=== PATIENT | female | born 1990 | race Hispanic/Latino ===

== ENCOUNTER 2017-05-03 14:27 | Emergency (ER) | payer MEDICAID ==
[2017-05-03] MEDS ORDERED: IBUPROFEN 600 MG TABLET ONE (14:43)
[2017-05-03] MEDS ORDERED: SULFAMETHOX-TMP DS 800/160 TAB ONE (14:44)
== END 2017-05-03 14:49 | disposition home or self-care (01) ==
LOC: EDH 14:27
DX: L03.115 Cellulitis of right lower limb (principal)

== ENCOUNTER 2017-05-08 22:03 | Emergency (ER) | payer MEDICAID | END 2017-05-08 22:39 | disposition home or self-care (01) | LOC: EDH 22:03 | DX: F13.10 Sedative, hypnotic or anxiolytic abuse, uncomplicated (principal); R41.82 Altered mental status, unspecified | CPT/HCPCS: 99281 ==

== ENCOUNTER 2017-10-07 23:38 | Emergency (ER) | payer MEDICAID ==
[2017-10-08] MEDS ORDERED: ACETAMINOPHEN 325 MG TAB ONE (00:04)
== END 2017-10-08 00:24 | disposition home or self-care (01) ==
LOC: EDH 23:38
DX: S00.81XA Abrasion of other part of head, initial encounter (principal); L08.9 Local infection of the skin and subcutaneous tissue, unspecified; Z72.0 Tobacco use; X58.XXXA Exposure to other specified factors, initial encounter; Y93.89 Activity, other specified; Y92.89 Other specified places as the place of occurrence of the external cause; Y99.8 Other external cause status

== ENCOUNTER 2018-03-17 19:03 | Emergency (ER) | payer MEDICAID ==
[2018-03-17] MEDS ORDERED: ONDANSETRON HCL 4 MG/2 ML VIAL ONE (19:27)
== END 2018-03-17 19:37 | disposition home or self-care (01) ==
LOC: EDH 19:03
DX: R11.2 Nausea with vomiting, unspecified (principal); Z72.0 Tobacco use
CPT/HCPCS: 96374; 99283; J2405

== ENCOUNTER 2018-10-08 18:49 | Emergency (ER) | payer MEDICAID ==
[2018-10-08 19:20] LABS: APPEARANCE,URINE CLOUDY (CLEAR); BILIRUBIN,URINE NEGATIVE (NEGATIVE); COLOR,URINE YELLOW (YELLOW); GLUCOSE, URINE (UA) NEGATIVE (NEGATIVE); KETONES,URINE NEGATIVE (NEGATIVE); LEUKOCYTE ESTERASE ,URINE SMALL (NEGATIVE); NITRATE,URINE POSITIVE (NEGATIVE); OCCULT BLOOD,URINE LARGE (NEGATIVE); PH,URINE 5.5 (5.0-8.0); PROTEIN,URINE TRACE mg/dL (NEGATIVE); UROBILINOGEN,URINE 0.2 mg/dL (0.2-1.0)
[2018-10-08 19:35] LABS: AMPHET/METH SCREEN,URINE NEGATIVE (NEGATIVE); BARBITURATE SCREEN, URINE NEGATIVE (NEGATIVE); BENZODIAZEPINES SCREEN,URINE NEGATIVE (NEGATIVE); CANNABINOID SCREEN,URINE NEGATIVE (NEGATIVE); COCAINE SCREEN,URINE POSITIVE (NEGATIVE); OPIATE SCREEN,URINE NEGATIVE (NEGATIVE); PHENCYCLIDINE SCREEN,URINE NEGATIVE (NEGATIVE)
[2018-10-08] MEDS ORDERED: ONDANSETRON ODT 4 MG TAB ONE (19:43)
[2018-10-08 19:49] LABS: BASOPHILS % (AUTO) 0.3 % (0.0-5.0); EOSINOPHILS % (AUTO) 0.5 % (0.0-8.0); HEMATOCRIT 39.7 % (36-48); LYMPHOCYTES % (AUTO) 18.6 % (21.0-51.0); MEAN CORPUSCULAR HEMOGLOBIN 31.6 pg (27.0-33.0); MEAN CORPUSCULAR HGB CONC 33.9 g/dL (32.0-36.0); MEAN CORPUSCULAR VOLUME 93.2 fL (79-99); MONOCYTES % (AUTO) 4.9 % (3.0-13.0); NEUTROPHILS % (AUTO) 75.7 % (40.0-77.0); PLATELET COUNT (AUTO) 309 K/uL (130-400); RED BLOOD CELL COUNT(AUTO) 4.26 MIL/uL (4.00-5.50); RED CELL DISTRIBUTION WIDTH 13.2 % (11.0-15.5); WHITE BLOOD COUNT (AUTO) 11.2 K/uL (4.8-10.8)
[2018-10-08 19:53] LABS: CARBON DIOXIDE 23 mmol/L (21-32); CHLORIDE 106 mmol/L (101-111); CREATININE 0.7 mg/dL (0.5-1.5); GLOMERULAR FILTR. RATE CALC 108 mL/min (>60); GLUCOSE,RANDOM 105 mg/dL (70-105); SODIUM SERUM 140 mmol/L (136-145); UREA NITROGEN, BLOOD 8 mg/dL (7-18)
[2018-10-08 19:56] LABS: BACTERIA,URINE Moderate /HPF (None Seen); SQUAMOUS EPITHELIAL CELL,UR Moderate /HPF (0-2); YEAST,URINE BUDDING Rare /HPF (None Seen)
[2018-10-08 19:57] LABS: MUCUS,URINE Rare LPF (None Seen)
[2018-10-08 19:59] LABS: ACETAMINOPHEN < 1 mcg/mL (10-30); ALANINE AMINOTRANSFERASE 20 U/L (12-78); ALBUMIN 3.3 g/dL (3.5-5.0); ALCOHOL, BLOOD < 3 mg/dL (0-10); ASPARTATE AMINOTRANSFERASE 19 U/L (10-37); BILIRUBIN,TOTAL 0.4 mg/dL (0.2-1.0); SALICYLATE < 2.8 mg/dL (2.8-20.0); TOTAL PROTEIN, SERUM 6.9 g/dL (6.0-8.3)
== END 2018-10-08 20:42 | disposition home or self-care (01) ==
LOC: EDH 18:49
DX: F14.10 Cocaine abuse, uncomplicated (principal); R07.9 Chest pain, unspecified; L03.116 Cellulitis of left lower limb; Z72.0 Tobacco use
CPT/HCPCS: 36415; 80053; 80305; 81001; 81025; 84484; 85025; 93005; 99285; G0480 ×2; G0481

== ENCOUNTER 2019-01-22 08:56 | Emergency (ER) | payer MEDICARE ==
[2019-01-22] MEDS ORDERED: ALBUTEROL SULFATE 0.083% 2.5 MG/3 ML INH IH ONE (09:34)
== END 2019-01-22 10:49 | disposition home or self-care (01) ==
LOC: EDH 08:56
DX: J20.9 Acute bronchitis, unspecified (principal); Z98.51 Tubal ligation status; Z72.0 Tobacco use
CPT/HCPCS: 71046; 87804; 94640

== ENCOUNTER 2019-10-17 05:54 | Emergency (ER) | payer MEDICARE ==
[2019-10-17] MEDS ORDERED: IBUPROFEN 600 MG TABLET ONE (06:33)
[2019-10-17] MEDS ORDERED: ACETAMINOPHEN EXTRA STRENGTH 500 MG TABLET ONE (06:33)
[2019-10-17] MEDS ORDERED: LIDOCAINE HCL 2% VISCOUS 15 ML UDCUP ONE (06:34)
[2019-10-17] MEDS ORDERED: MAG HYDROX/AL HYDROX/SIMETH ES 30 ML SUSP UDCUP ONE (06:34)
== END 2019-10-17 06:45 | disposition home or self-care (01) ==
LOC: EDH 05:54
DX: R06.02 Shortness of breath (principal); R05 Cough; R11.2 Nausea with vomiting, unspecified; R50.9 Fever, unspecified

== ENCOUNTER 2019-11-27 00:12 | Emergency (ER) | payer MEDICARE ==
[2019-11-27] MEDS ORDERED: SODIUM CHLORIDE 0.9% 1000ML 1,000 ML IV ONE (00:13)
[2019-11-27] MEDS ORDERED: LORAZEPAM 2 MG/ML 1 ML VIAL ONE (00:20)
[2019-11-27 00:50] LABS: BASOPHILS % (AUTO) 0.2 % (0.0-5.0); EOSINOPHILS % (AUTO) 0.3 % (0.0-8.0); HEMATOCRIT 38.6 % (36-48); LYMPHOCYTES % (AUTO) 27.7 % (21.0-51.0); MEAN CORPUSCULAR HEMOGLOBIN 30.8 pg (27.0-33.0); MEAN CORPUSCULAR HGB CONC 34.5 g/dL (32.0-36.0); MEAN CORPUSCULAR VOLUME 89.4 fL (79-99); MONOCYTES % (AUTO) 9.7 % (3.0-13.0); NEUTROPHILS % (AUTO) 61.7 % (40.0-77.0); PLATELET COUNT (AUTO) 391 K/uL (130-400); RED BLOOD CELL COUNT(AUTO) 4.32 MIL/uL (4.00-5.50); RED CELL DISTRIBUTION WIDTH 12.6 % (11.0-15.5); WHITE BLOOD COUNT (AUTO) 11.6 K/uL (4.8-10.8)
[2019-11-27 00:51] LABS: APPEARANCE,URINE Clear (CLEAR); BILIRUBIN,URINE Negative (NEGATIVE); COLOR,URINE Dark Yellow (YELLOW); GLUCOSE, URINE (UA) Negative (NEGATIVE); KETONES,URINE Negative (NEGATIVE); LEUKOCYTE ESTERASE ,URINE Negative (NEGATIVE); NITRATE,URINE Negative (NEGATIVE); OCCULT BLOOD,URINE Moderate (NEGATIVE); PROTEIN,URINE Trace mg/dL (NEGATIVE)
[2019-11-27 00:53] LABS: HCG,QUAL RESULT NEGATIVE (NEGATIVE)
[2019-11-27 00:58] LABS: BACTERIA,URINE None Seen /HPF (None Seen); MUCUS,URINE Few LPF (None Seen); SQUAMOUS EPITHELIAL CELL,UR Rare /HPF (0-2); WBC,URINE 0-1 /HPF (0-1)
[2019-11-27 01:00] LABS: CARBON DIOXIDE 26 mmol/L (21-32); CHLORIDE 101 mmol/L (101-111); CREATININE 0.9 mg/dL (0.5-1.5); GLOMERULAR FILTR. RATE CALC 80 mL/min (>60); GLUCOSE,RANDOM 99 mg/dL (70-105); POTASSIUM 3.8 mmol/L (3.5-5.1); SODIUM SERUM 136 mmol/L (136-145); UREA NITROGEN, BLOOD 16 mg/dL (7-18)
[2019-11-27 01:14] LABS: ALANINE AMINOTRANSFERASE 23 U/L (12-78); ALCOHOL, BLOOD < 3 mg/dL (0-10); ASPARTATE AMINOTRANSFERASE 32 U/L (10-37); BILIRUBIN,TOTAL 0.5 mg/dL (0.2-1.0); TOTAL PROTEIN, SERUM 8.3 g/dL (6.0-8.3)
[2019-11-27 01:25] LABS: CREATINE KINASE, TOTAL 562 U/L (21-232)
[2019-11-27 02:06] LABS: AMPHET/METH SCREEN,URINE NEGATIVE (NEGATIVE); BARBITURATE SCREEN, URINE NEGATIVE (NEGATIVE); BENZODIAZEPINES SCREEN,URINE NEGATIVE (NEGATIVE); CANNABINOID SCREEN,URINE NEGATIVE (NEGATIVE); COCAINE SCREEN,URINE POSITIVE (NEGATIVE); OPIATE SCREEN,URINE NEGATIVE (NEGATIVE); PHENCYCLIDINE SCREEN,URINE NEGATIVE (NEGATIVE)
[2019-11-27] MEDS ORDERED: ACETAMINOPHEN 325 MG TAB ONE (05:49)
[2019-11-27] MEDS ORDERED: DIPHENHYDRAMINE HCL 25 MG CAPSULE ONE (05:49)
== END 2019-11-27 07:56 | disposition home or self-care (01) ==
LOC: EDH 00:12
DX: S91.114A Laceration without foreign body of right lesser toe(s) without damage to nail, initial encounter (principal); G24.09 Other drug induced dystonia; F19.10 Other psychoactive substance abuse, uncomplicated; F41.9 Anxiety disorder, unspecified; Z72.0 Tobacco use; Y35.893A Legal intervention involving other specified means, suspect injured, initial encounter; Y93.89 Activity, other specified; Y92.89 Other specified places as the place of occurrence of the external cause; Y99.8 Other external cause status
CPT/HCPCS: 36415; 73660; 80053; 80305; 81001; 81025; 82550; 85025; 96374; 99284; J2060; J7030; Q0163

== ENCOUNTER 2020-07-11 08:09 | Emergency (ER) | payer MEDICARE ==
[2020-07-11 08:26] LABS: APPEARANCE,URINE Cloudy (CLEAR); BILIRUBIN,URINE Negative (NEGATIVE); COLOR,URINE Yellow (YELLOW); GLUCOSE, URINE (UA) Negative (NEGATIVE); KETONES,URINE Negative (NEGATIVE); LEUKOCYTE ESTERASE ,URINE Large (NEGATIVE); NITRATE,URINE Negative (NEGATIVE); OCCULT BLOOD,URINE Large (NEGATIVE); PH,URINE 6.5 (5.0-8.0); PROTEIN,URINE POS 2+ mg/dL (NEGATIVE)
[2020-07-11 08:34] LABS: HCG,QUAL RESULT NEGATIVE (NEGATIVE)
[2020-07-11 08:40] LABS: AMPHET/METH SCREEN,URINE NEGATIVE (NEGATIVE); BARBITURATE SCREEN, URINE NEGATIVE (NEGATIVE); BENZODIAZEPINES SCREEN,URINE NEGATIVE (NEGATIVE); CANNABINOID SCREEN,URINE NEGATIVE (NEGATIVE); COCAINE SCREEN,URINE POSITIVE (NEGATIVE); OPIATE SCREEN,URINE NEGATIVE (NEGATIVE); PHENCYCLIDINE SCREEN,URINE NEGATIVE (NEGATIVE)
[2020-07-11 08:45] LABS: BACTERIA,URINE Moderate /HPF (None Seen)
[2020-07-11 08:46] LABS: WBC,URINE 26-50 /HPF (0-1)
[2020-07-11] MEDS ORDERED: LEVOFLOXACIN 500 MG TABLET ONE (09:24)
[2020-07-11] MEDS ORDERED: PHENAZOPYRIDINE HCL 200 MG TABLET ONE (09:25)
[2020-07-11] MEDS ORDERED: ACETAMINOPHEN EXTRA STRENGTH 500 MG TABLET ONE (09:31)
== END 2020-07-11 10:23 | disposition home or self-care (01) ==
LOC: EDH 08:09
DX: N39.0 Urinary tract infection, site not specified (principal); F14.10 Cocaine abuse, uncomplicated
CPT/HCPCS: 80305; 81001; 81025; 87077; 87088; 87186